=== PATIENT | female | born 1955 | race Caucasian/White ===

== ENCOUNTER 2017-01-27 14:51 | Emergency (ER) | payer BC ==
[2017-01-27 15:47] LABS: Hematocrit 36.5 % (37.0-47.0); Hemoglobin 11.8 gm/dL (12.5-16.0); Mean Cell Volume 91.5 fl (78-100); Mean Corpuscular Hemoglobin 29.6 pg (27-31); Mean Corpuscular Hgb Conc 32.3 g/dl (32-36); Mean Platelet Volume 10.9 fl (6.0-9.5); Neutrophil # 3.2 K/mm3 (1.3-6.0); Neutrophil % 57.6 % (42-75.0); Platelet Count 299 K/mm3 (150-450); Red Blood Count 3.99 M/mm3 (4.2-5.4); Red Cell Distribution Width 14.6 % (11.5-14.0); White Blood Count 5.5 K/mm3 (4.0-10.5)
[2017-01-27 15:49] LABS: Urine Appearance Clear; Urine Bacteria None Seen; Urine Bilirubin Negative (NEGATIVE); Urine Blood Negative /ul (NEGATIVE); Urine Color Yellow; Urine Ketone Negative (NEGATIVE); Urine Nitrite Negative (NEGATIVE); Urine Protein Negative (NEGATIVE); Urine RBC None Seen /hpf (0-5); Urine Specific Gravity 1.015 SP.GR. (1.005-1.010); Urine Urobilinogen Normal (NORMAL); Urine WBC 0-5 /hpf (0-5)
[2017-01-27 16:06] LABS: Troponin I Less than 0.017 ng/ml (0.00-0.10)
[2017-01-27 16:08] LABS: ALT 37 U/L (19-67); AST 27 U/L (0-48); Albumin * 3.9 gm/dl (3.4-5.0); Alkaline Phosphatase * 81 U/L (50-170); Anion Gap 12.9 mmol/L (6.8-13.8); BNP * 173 pg/mL (5-205); BUN/Creatinine Ratio 22.2 (9.0-21.6); Bilirubin, Total 0.4 mg/dL (0.0-1.1); Blood Urea Nitrogen 16 mg/dL (3-23); Ca. Corrected For Albumin 9.1 mg/dL (8.4-10.2); Calcium * 9.3 mg/dL (7.9-10.9); Carbon Dioxide 29.2 mmol/L (24-32.6); Chloride 104 mmol/L (97-106); Glucose * 97 mg/dL (70-110); Potassium 4.1 mmol/L (3.4-4.6); Sodium 142 mmol/L (132-142); Total Protein 7.2 gm/dL (6.2-8.2)
[2017-01-27] MEDS ORDERED: HYDROCHLOROTHIAZIDE 25 MG TABLET PO ONE (16:27)
--- NOTE | 2017-01-27 16:28 | ERNOTE ---
Lower Extremity HPI - Narrative Date of Service: 01/27/17 - General Lower Extremities Pain: leg: bilateral - swelling Time Seen by Provider: 01/27/17 15:17 Source: patient Exam Limitations: no limitations - Immun/Allergies/Home Medications Immunizations: IMMUNIZATION HX Immunizations Up to Date Yes History of Influenza Vaccine Yes Allergies/Adverse Reactions: Allergies Allergy/AdvReac Type Severity Reaction Status Date / Time menthol AdvReac Mild BLURRED Verified 01/27/17 15:05 VISION Home Medications: HOME MEDICATIONS Calcium Carb/Vit D3/Minerals [Calcium 1,200 mg Tablet Chew] 1 each PO DAILY [Last Taken Unknown] Citalopram Hydrobromide [Celexa] 40 mg PO DAILY 03/19/13 [Last Taken Unknown] Ibuprofen [Motrin] 800 mg PO TID PRN 03/19/13 [Last Taken Unknown] Gabapentin [Neurontin] 800 mg PO TID 12/11/13 [Last Taken Unknown] Cyanocobalamin (Vitamin B-12) [Vitamin B-12] 5,000 mcg PO DAILY 02/07/16 [Last Taken Unknown] Multivitamins [Multivitamin Patrick] 1 cap PO DAILY 02/07/16 [Last Taken Unknown] Ferrous Sulfate 325 mg PO BIDWM #60 tablet 02/24/16 [Last Taken Unknown] Duloxetine HCl [Cymbalta] 20 mg PO DAILY 01/27/17 [Last Taken Unknown] Hydrochlorothiazide [Hydrodiuril] 25 mg PO DAILY #30 tab 01/27/17 [Last Taken Unknown] Lisinopril [Zestril] 10 mg PO DAILY #30 tablet 01/27/17 [Last Taken Unknown] Pantoprazole Sodium [Protonix] 40 mg PO DAILY 01/27/17 [Last Taken Unknown] oxyCODONE HCL [Oxycontin] 15 mg PO BID 01/27/17 [Last Taken Unknown] - History of Present Illness Narrative: Patient comes due to pain on the lower legs and swelling. Patient at the moment with no SOB and no Chest Pain. 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 Occurred: other - 3 months Method of Injury: Denies: fell, twisted, direct blow, fainted, motor vehicle accident, assault, burn, incised, sports injury, no apparent injury Reason for Fall: Reports: other - none Loss of Consciousness: Reports: no loss of consciousness Modifying Factors - (Improves): Reports: rest Modifying Factors - (Worsens): Reports: movement, other - walking Associated Symptoms: Denies: unable to bear weight, snapping, dizzy/light headedness, headache, weakness, chest pain, vomiting/diarrhea, bowel/bladder problems, other injuries Other Injuries: Reports: none Subsequent Symptoms: Reports: numbness - on the legs that have swelling. Denies : sensory loss Prior Treament: Denies: recently seen Review of Systems - Review of Systems Constitutional: Present: no symptoms reported EYE: Present: no symptoms reported ENT: Present: no symptoms reported Respiratory: Present: no symptoms reported Cardiology: Present: no symptoms reported Gastrointestinal/Abdominal: Present: no symptoms reported Genitourinary: Present: no symptoms reported Musculoskeletal: Present: muscle pain, other - Leg swelling. Absent: back pain , muscle stiffness, neck pain, joint pain, joint swelling Skin: Present: no symptoms reported Neurological: Present: no symptoms reported Endocrine: Present: no symptoms reported Hematologic/Lymphatic: Present: no symptoms reported Psych: Present: no symptoms reported All Other Systems: All systems neg except as marked - Patient's Past Medical History Patient History - Medical: Osteoarthritis Patient History - Cardiac/Respiratory: No pertinent hx Patient History - Cancer: No Hx of Cancer Patient History - Surgical Procedures: , Hysterectomy, Total Knee Replacement Patient History - Other: None - Social History Living Situations: significant other Abuse History: No History of abuse Psych History: No pertinent hx Smoking Status: Never smoker Have you smoked in the past 12 months: No Alcohol Use: occasionally Drug Use: none - Immunizations Immunizations Up to Date: Yes History of Influenza Vaccine: Yes Physical Exam - Physical Exam General Appearance: Present: wd/wn, alert, no apparent distress Eye Exam: Normal inspection: bilateral Ears, Nose, Throat: Present: normal ENT inspection Neck: Present: normal inspection, nontender Respiratory: Present: no respiratory distress, normal breath sounds, no accessory muscle use, chest nontender, lungs clear Cardiovascular/Chest: Present: regular rate, rhythm, no murmur, normal peripheral pulses. Absent: JVD Gastrointestinal/Abdominal: Present: normal bowel sounds Back Exam: Present: normal inspection, normal range of motion. Absent: CVA tenderness (R), CVA tenderness (L), vertebral tenderness Extremity Exam: Present: normal range of motion. Absent: no edema - Patient has pitting edema bilateral. No open wounds and no loss of sensation or pulses. Neurological Exam: Present: alert, oriented, normal mood/affect, no motor/ sensory deficits Skin Exam: Present: normal color, warm/dry. Absent: cool/dry, diaphoresis, cyanosis, jaundice, pallor, skin rash, diaper rash Lymphatic Exam: Present: no adenopathy ED Progress - Date and Time Seen: Date and Time: 01/27/17 16:19 Patient with a chronic condition. Patient with bilateral edema. Patient with no distress. Patient will be discharge home. Patient is to follow with PCP for further evaluation. - Results and Orders Patient's Lab Results:: I have reviewed the patient's lab results. Results and Orders: CBC: Normal CMP: Normal Trop: Negative BNP: Negative UA: No proteinuria - Vital Signs Patient's Vital Signs:: I have reviewed the patient's vital signs. Vital Signs: Vital Signs 01/27/17 15:02 Temperature 36.7 C Pulse Rate 72 Respiratory 12 Rate Blood Pressure 148/100 O2 Sat by Pulse 97 Oximetry - EKG EKG: NSR EKG read: Interp. by me EKG Comments: HR: 64, No ST Elevation, LAD, LVH - X-Ray X-Ray #1 X-Ray: chest X-ray Comments: No consolidations and no infiltrates. Mild Cardiomegaly - Progress/Reassessment Chief Complaint: Lower Extremity Pain/ Injury Progress:: Improved - Transfer of Care Expected Disposition: Discharge Departure Clinical Impression: Hypertension Qualifiers: Hypertension type: essential hypertension Qualified Code(s): I10 - Essential ( primary) hypertension Edema Qualifiers: Edema type: unspecified Qualified Code(s): R60.9 - Edema, unspecified - Departure Disposition: Home self-care Condition: Stable Instructions: Hypertension, [id number] Referrals: Eddi Higgins MD [Primary Care Provider] - Prescriptions: Hydrochlorothiazide [Hydrodiuril] 25 mg PO DAILY #30 tab Lisinopril [Zestril] 10 mg PO DAILY #30 tablet
[2017-01-27] MEDS ORDERED: HYDROCHLOROTHIAZIDE 25 MG TABLET ONE (16:29)
[2017-01-27 16:45] VITALS: BP 180/78
== END 2017-01-27 16:48 | disposition home or self-care (01) ==
LOC: ER 14:51
DX: I10 Essential (primary) hypertension (principal); R60.9 Edema, unspecified; M19.90 Unspecified osteoarthritis, unspecified site

== ENCOUNTER 2017-10-10 06:16 | Inpatient (IN) | payer BC ==
[~2017-10-10 06:16] MED LIST: MORPHINE SULFATE 15 MG TABLET.SA PO PRN; RINGER'S SOLUTION,LACTATED 1,000 ML IV PRN; ceFAZolin SODIUM 1 GM VIAL IV PRN
[2017-10-10] MEDS ORDERED: RINGER'S SOLUTION,LACTATED 1,000 ML IV ONE ×2 (07:45→09:40)
[2017-10-10] MEDS ORDERED: PROMETHAZINE HCL 5 MG in DEXTROSE 5 % IN WATER 50 ML IV PRN ×2 (10:06)
[2017-10-10] MEDS ORDERED: MAG HYDROX/ALUMINUM HYD/SIMETH 30 ML UDC PO PRN (10:06)
[2017-10-10] MEDS ORDERED: diphenhydrAMINE HCL 50 MG/ML VIAL IV PRN (10:06)
[2017-10-10] MEDS ORDERED: ACETAMINOPHEN 500 MG TABLET PO PRN (10:06)
[2017-10-10] MEDS ORDERED: ONDANSETRON HCL/PF 2 MG/ML VIAL IV PRN (10:06)
[2017-10-10] MEDS ORDERED: MAGNESIUM HYDROXIDE 30 ML UDC PO PRN (10:06)
[2017-10-10] MEDS ORDERED: oxyCODONE HCL 5 MG TABLET PO PRN (10:06)
[2017-10-10] MEDS ORDERED: MOMETASONE FUROATE 120 SPRAY INHALER NS PRN (10:28)
[2017-10-10] MEDS ORDERED: ALBUTEROL SULFATE 2.5 MG/0.5 ML VIAL.NEB IH PRN (10:28)
--- NOTE | 2017-10-10 10:32 | POSTOP NO ---
Date of Surgery: 10/10/17 Anesthesia: General Patient Tolerated the Procedure: Well Post Operative Diagnosis/Procedures: Co-surgeon: Benny Wisdom M.D. Finance Lecturer: Agus Bautista PA-C Post-operative Diagnosis: Right shoulder rotator cuff deficient arthritis Finding: Above Procedure: Right reverse total shoulder arthroplasty Estimated Blood Loss: 100 ml Specimens: Bone for disposal
--- NOTE | 2017-10-10 10:56 | OR ---
Operative Report - Dictated Report Narrative: Date: 10/10/2017 Physician: David Proctor M.D. Co-surgeon: Benny Wisdom M.D. Loom Fixer Apprentice: Agus Bautista PA-C Preoperative diagnosis: Right Shoulder Rotator Cuff Deficient Arthritis Postoperative diagnosis: Right Shoulder Rotator Cuff Deficient Arthritis Procedure: Reverse right total shoulder arthroplasty Anesthesia: General plus regional Complications: None Estimated blood loss: 100 Milliliters Specimens: Bone for disposal Retained implants: Depuy Global Unite Porocoat Size 8 standard stem, Delta Xtend Cementless Modular Centered Epiphysis Size 1, Delta Xtend size 38 + 6 humeral PE cup, Delta Xtend size 38 Glenosphere, Delta Xtend Cementless ELDER coated centered Metaglene, 4.5 mm Delta Xtend locking screws 24 and 36 mm, 4.5 mm Delta Xtend size 18 mm posterior screw Drains: None Indications: Mrs. Floyd Is a 61 year-old female who has been followed in my clinic with complaints of shoulder pain consistent with chronic rotator cuff deficient shoulder arthrosis and pain. Physical exam and diagnostic imaging were consistent with his complaints and concern for shoulder arthritis and massive retracted rotator cuff tear. Conservative measures have failed including, but not limited to, passage of time, activity modification, medications, physical therapy/home exercise program, or injections. The risks, benefits, and alternatives were discussed in clinic. The risks being , bleeding, infection, blood clots, nerve, tendon, ligament, blood vessel injury, instability, malposition of implants, wear, persistent pain, arthrosis, stiffness, need for prolonged therapy, need for additional procedures, and persistent symptoms. Consent was obtained in the clinic. Procedure: After marking the correct extremity on the floor, a timeout was performed in the operating room. IV antibiotics consisting of Ancef were administered prior to the procedure. A general followed by regional anesthetic was induced by the nurse furnace unloader per my request. This was in the supine position, then the patient was transitioned to a beachchair position with all bony prominences well -padded, head in neutral, the nonoperative arm well supported, and the legs padded with SCDs in place. The operative shoulder was then prepped and draped in a standard sterile fashion. A standard deltopectoral incision was then made. Blunt dissection was carried through the subcutaneous fat in order to encounter the cephalic vein. Cephalic vein was then mobilized in order to pass through the deltopectoral interval. The superior aspect of the pectoralis was released off the humerus. The underlying fascia was elevated exposing the subscapularis tendon. The subscapularis was then tagged and reflected off of the anterior humerus splitting this into the joint. The long head of the biceps was tenotomized and the shoulder was dislocated. A soft tissue release around the inferior and posterior aspect of the humeral head was performed in order to improve the visualization of the proximal humerus. An entry drill was then placed into the humeral head passing down the humeral shaft just onto the articular surface medial to the greater tuberosity. A series of reamers up to a size 8 were utilized. Next a standard neck cut was made utilizing the outrigger and 10 of retroversion. The osteophytes and excessive bone around the neck and head were then rongeured and the cap was placed over the cut proximal humerus. There was notable significant arthrosis of the humeral head. Next attention was turned to the glenoid. The remaining labrum and soft tissues were mobilized off the glenoid and surrounding neck. This allowed for adequate exposure and visualization of the arthritic glenoid. Retractors were then placed in order to expose the glenoid. Utilizing the guide handle a guide wire was placed into the glenoid. This was placed in a slightly inferior posterior position ensuring that this was directed in an inferior angle compared to the face of the glenoid. The circular followed by eccentric reamer was utilized in order to expose the glenoid face down to a subchondral surface which was smooth. Next the central peg was drilled ensuring that there was bone circumferentially. The metaglene was then impacted in the place seating completely. The superior and inferior screw holes were drilled and measured and securely placed. The anterior and posterior nonlocking screws were then drilled and placed and then the superior and inferior locking screws were locked in to place. A size 38 standard Glenosphere was then placed onto the metaglene and the screw was tightened while sequentially impacting and tightening ensuring that the Glenopher was securely seated. Attention was then returned to the humerus. While retracting the surrounding soft tissues, the proximal reaming broach was impacted in the previously cut 10 retroversion manner. A standard reamer was utilized in order to prepare the proximal humerus. This was done utilizing the center guide. The remaining bone off the center aspect of the proximal humerus was rongeured and the trial stem was then impacted in 10 of retroversion. A series of spacers were utilized finding that a +6 spacer gave appropriate stability. Longitudinal traction resulted in minimal translation. The conjoined tendon was under tension. She was able to reach 90 of abduction and external rotation. Forward flexion was greater than 140 and she was able to adduct fully without impinging onto the scapular neck. Once was felt that we had the appropriate sized implants the shoulder was dislocated and the proximal humerus was thoroughly irrigated. The final implants were assembled on the back table and impacted into place seating completely. We re-trialed the spacers confirming that we had the appropriate sized spacer and the final polyethylene was then impacted into place. Shoulder was reduced and again was noted to be stable through multiple positions. The wounds were then thoroughly irrigated. The subscapularis was repaired with #2 Ethibond. The deltopectoral interval was closed with running 0 Vicryl. Subcutaneous tissues closed with 0 Vicryl. The skin was closed with running 3- 0 Vicryl and juan manuel. Xeroform, 4 x 4s, and a Tegaderm was applied. The patient was then awoken and transferred to postanesthesia care in stable condition. All sponge, needle, and instrument counts were correct prior close the wounds. the wounds were thoroughly irrigated. 0 Vicryl was utilized in order to repair the deltoid fascia. 3-0 Vicryl was placed in the subcutaneous tissue. The rotator cuff incision as well as the portal sites were closed with interrupted nylon. Dressings consisting of Xeroform, 4 x 4, ABD, soft roll, and tape were applied. All sponge, needle, blade, and instrument counts were correct prior to closing the wounds. The patient was awoken and transferred to the postanesthesia care unit in stable condition.
--- NOTE | 2017-10-10 10:59 | OR ---
Anesthesia Procedure Note - Anesthesia Procedure Note Narrative: Vital Signs - Last Taken Temp 37.0 C 10/10/17 10:45 Pulse 89 10/10/17 10:45 Resp 18 10/10/17 10:45 BP 140/43 10/10/17 10:45 Pulse Ox 100 10/10/17 10:45 O2 Oxygen Delivery Method Mask 10/10/17 10:56 ANESTHESIA PROCEDURE NOTE Date of procedure: 10/10/2017. Time of procedure: 07 50. Performed by: Tai Davies CRNA Weight Loss Counselor: Carmen Davis RN . Preprocedure diagnosis: Right shoulder osteoarthrosis. Desire for postoperative analgesia after right reverse total shoulder procedure. Post procedure diagnosis: Same. Procedure: Right ultrasound-guided interscalene nerve block. Indications: Postoperative analgesia. Findings: Patient brought to operating room #4 and placed in a semi-Fowlers position. Patient was sedated to affect. Patient's right neck area was prepped with ChloraPrep. Ultrasound used to identify brachial plexus in the groove between the inner and middle scalene muscles. A 22-gauge Stimuplex regional block needle was inserted under ultrasound guidance. A total of 40 mL of 0.5% Marcaine with epinephrine 1 200,000 was injected around the nerves of the brachial plexus. Adequate spread of local anesthetic was noted. Regional block needle was removed intact. EBL: Minimal. Fluids: N/A. Specimen: N/A. Post procedure condition: The patient tolerated the procedure well. No complications were noted. Thank you for this consultation Tai Davies CRNA
[2017-10-10] MEDS: NORMAL SALINE 1,000 ML IV PRN ×2 (11:17→19:59)
[2017-10-10] MEDS: ceFAZolin SODIUM 1 GM in DEXTROSE 5 % IN WATER 100 ML IV SCH ×4 (14:14→21:30)
[2017-10-10] MEDS: GABAPENTIN 400 MG CAPSULE PO SCH ×2 (14:14→20:01)
[2017-10-10] MEDS: MORPHINE SULFATE 2 MG/ML DISP.SYRIN IV PRN (15:41)
[2017-10-10] MEDS: oxyCODONE HCL 5 MG TABLET PO PRN ×2 (17:51→23:51)
[2017-10-10] MEDS: DULoxetine HCL 30 MG CAPSULE.SA PO SCH (20:02)
[2017-10-10] MEDS: FUROSEMIDE 20 MG TABLET PO SCH (20:02)
[2017-10-10] MEDS ORDERED: SENNOSIDES/DOCUSATE SODIUM 1 TAB TABLET PO SCH (21:00)
[2017-10-11] MEDS: ceFAZolin SODIUM 1 GM in DEXTROSE 5 % IN WATER 100 ML IV SCH ×2 (05:25)
[2017-10-11] MEDS: oxyCODONE HCL 5 MG TABLET PO PRN ×2 (05:54→12:13)
[2017-10-11] MEDS: GABAPENTIN 400 MG CAPSULE PO SCH (06:52)
[2017-10-11] MEDS ORDERED: PANTOPRAZOLE SODIUM 40 MG TABLET.EC PO SCH (07:00)
[2017-10-11] MEDS: MORPHINE SULFATE 2 MG/ML DISP.SYRIN IV PRN (07:06)
--- NOTE | 2017-10-11 08:02 | DS ---
(1) Hypertension Problem: Chronic (2) Depression Problem: Chronic Qualifiers: (3) GERD (gastroesophageal reflux disease) Problem: Chronic Qualifiers: (4) Neuropathy Problem: Chronic (5) Osteoarthritis Problem: Chronic Qualifiers: (6) Overactive bladder Problem: Chronic (7) Status post reverse total arthroplasty of right shoulder Problem: Acute Description of Stay: Mrs. Floyd was admitted to the floor after undergoing reverse right total shoulder arthroplasty. Tolerated this well. Was admitted to the floor postoperatively for 24 hours of IV antibiotics, pain control, medical comanagement, and occupational and physical therapy. OT and PT were consulted to assist with activities of daily living and ambulation. She was placed in a shoulder immobilizer and allowed to work elbow and wrist range of motion as tolerated with limited external rotation to her shoulder. Pain was initially controlled with IV regimen. This was transitioned to oral once tolerating a by mouth intake. Was resumed on home diet and medications. Had a Don catheter inserted and the operating room which was discontinued on postoperative day 1. Aspirin, SCD were utilized for DVT prophylaxis. Vital signs remained stable to the hospital course. Physical examination throughout the hospital course showed an extremity that had sensation that was intact to light touch, palpable pulses, a benign wound, motor intact to the hand and wrist. Once an oral pain regimen was tolerated and physical therapy goals were met, it was felt that they were stable for discharge to home. Instructions: Continue shoulder immobilizer and elbow and wrist range of motion as tolerated. Keep the wound dry and covered. Cover wound while showering if there is any drainage. Resume home diet. Report any fever over 101.5 Fahrenheit, uncontrolled pain, increased drainage, foul odor of drainage, new or increased calf pain or shortness of breath, or any other significant complaints. A 325mg dialy aspirin will be continued. No driving until instructed otherwise. Follow up in approximately 10-14 days. Procedures Performed: see notes below List Procedures: Reverse right total shoulder arthroplasty Discharge Disposition: Home self care Disposition: Home self-care Condition: Good Discharge Activity: Other - wear the immobilizer. Okay for wrist and hand range of motion as tolerated. Okay to start passive forward flexion but no passive external rotation Discharge Diet: General/regular food Assisted Therapy: Physicial Therapy Referrals: Eddi Higgins MD [Primary Care Provider] - Additional Patient Instructions (free text): Follow-up in the office with Dr. Proctor on 10/25/17 at 10:45am. Prescriptions (Any new or edited meds): oxyCODONE HCL [Oxycodone] 10 mg PO Q4H PRN #120 tablet PRN Reason: Severe Pain oxyCODONE HCL [Oxycontin] 15 mg PO BID #30 tab.sr.12h Complete Home Medications List: Complete Home Medication List: Citalopram Hydrobromide [Celexa] 40 mg PO DAILY 03/19/13 Gabapentin [Neurontin] 800 mg PO TID 12/11/13 Cyanocobalamin (Vitamin B-12) [Vitamin B-12] 5,000 mcg PO DAILY 02/07/16 Multivitamins [Multivitamin Patrick] 1 cap PO DAILY 02/07/16 Pantoprazole Sodium [Protonix] 40 mg PO DAILY 01/27/17 Albuterol Sulfate [Proair Hfa] 2 puff IH Q4H PRN 09/20/17 Calcium Carbonate 1,200 mg PO DAILY 09/20/17 Duloxetine HCl [Cymbalta] 30 mg PO BID 09/20/17 Furosemide [Lasix] 20 mg PO BID 09/20/17 L.acidoph,Paracasei, B.lactis [Probiotic] 1 each PO DAILY 09/20/17 Megakrill 1 cap PO DAILY 09/20/17 Meloxicam [Mobic] 15 mg PO DAILY 09/20/17 Mometasone Furoate [Nasonex] 2 spray NS HS PRN 09/20/17 Aspirin [Aspirin Enteric Coated] 325 mg PO DAILY tablet. 10/11/17 Sennosides/Docusate Sodium [Senokot-S] 2 tab PO HS tablet 10/11/17 oxyCODONE HCL [Oxycodone] 10 mg PO Q4H PRN #120 tablet 10/11/17 oxyCODONE HCL [Oxycontin] 15 mg PO BID #30 tab.sr.12h 10/11/17 Amb Orders for Discharge: PT Evaluation and Treatment Facility: [facility], Location: Rehabilitation Services
--- NOTE | 2017-10-11 08:34 | PN ---
Subjective - Date and Time Seen Date: 10/11/17 Time: 08:26 Subjective Narrative: Anjelica didnt work very well, but pills have been adequate. Plans to go home later todayl Objective - Review of Systems Generalized/Overall Review: Reports: No Symptoms Reported EENTM: Reports: No Symptoms Reported Respiratory: Reports: No Symptoms Reported Cardiac: Reports: No Symptoms Reported Abdominal: Reports: No Symptoms Reported Genitourinary Symptoms: Reports: No Symptoms Reported Musculoskeletal Complaints: Reports: Joint Pain Neurological: Reports: No Symptoms Reported Endocrine: Reports: No Symptoms Reported Misc: All systems neg except as marked - Vitals Vitals: Last Vital Signs Selected Entries Selected Entries 10/10/17 10/11/17 20:55 08:17 Temperature 36.8 C Temperature Oral Source Pulse Rate 94 74 Respiratory 16 Rate Blood Pressure 123/53 O2 Sat by Pulse 94 Oximetry Oxygen Delivery Room Air Method - Exam Constitutional: Present: Oriented x3, Cooperative, Well developed, Well nourished, No distress ENT Exam: Present: normal ENT inspection, hearing grossly normal, pharynx normal , TMs normal Neck: Present: normal inspection Respiratory: Present: normal breath sounds, no respiratory distress Cardiovascular/Chest: Present: regular rate, rhythm, no murmur Abdomen: Present: Normal bowel sounds, soft, nontender, nondistended, no rebound tenderness Extremity: Present: normal inspection, no pedal edema, other - brace right shoulder Neurologic: Present: alert, oriented x 3 Appearance: Present: appropriate appearance, appropriate insight, neat, no memory impairment Eye contact: Present: cooperative, good eye contact, normal speech, avoids eye contact Thoughts: Present: normal thought pattern Assessment/Plan Plan Narrative: doing well. follow protocol. - Problems/Diagnosis (1) Status post reverse total arthroplasty of right shoulder Problem: Acute
[2017-10-11] MEDS: DULoxetine HCL 30 MG CAPSULE.SA PO SCH (08:44)
[2017-10-11] MEDS: FUROSEMIDE 20 MG TABLET PO SCH (08:46)
[2017-10-11] MEDS ORDERED: CITALOPRAM HYDROBROMIDE 20 MG TABLET PO SCH (09:00)
[2017-10-11] MEDS ORDERED: MEGAKRILL PO SCH (09:00)
[2017-10-11] MEDS ORDERED: MULTIVITAMINS 1 CAP CAPSULE PO SCH (09:00)
[2017-10-11] MEDS ORDERED: CALCIUM CARBONATE 500 MG TAB.CHEW PO SCH (09:00)
[2017-10-11] MEDS ORDERED: ASPIRIN 81 MG TAB.CHEW PO SCH (09:00)
[2017-10-11] MEDS ORDERED: CYANOCOBALAMIN 1,000 MCG TABLET PO SCH (09:00)
[2017-10-11] MEDS ORDERED: LACTOBACILLUS ACIDOPHILUS 100 CAP BTL PO SCH (09:00)
[2017-10-11] MEDS ORDERED: ASPIRIN 325 MG TABLET.DR PO SCH (09:00)
[2017-10-11 12:17] VITALS: BP 151/72
== END 2017-10-11 13:00 | disposition home or self-care (01) | DRG 483 ==
LOC: MS 06:16
PROVIDERS: ADMIT Orthopaedic Surgery; ATTEND Orthopaedic Surgery
PROC: 0RRJ00Z Replacement of Right Shoulder Joint with Reverse Ball and Socket Synthetic Substitute, Open Approach (ICD-10-PCS; principal; 2017-10-10 08:00)
DX: M19.011 Primary osteoarthritis, right shoulder (principal); N32.81 Overactive bladder; I10 Essential (primary) hypertension; G62.9 Polyneuropathy, unspecified; Z79.82 Long term (current) use of aspirin